=== PATIENT | female | born 1990 | race African-American/Black ===

== ENCOUNTER 2024-03-10 17:05 | Emergency (ER) | payer OTHER ==
[~2024-03-10] VITALS: Ht 167.6 cm; Wt 75.5 kg
[2024-03-10 18:52] VITALS: BP 147/100
== END 2024-03-10 18:52 | disposition home or self-care (01) ==
LOC: ED 17:05
DX: R45.851 Suicidal ideations (principal); F60.3 Borderline personality disorder; Z88.5 Allergy status to narcotic agent
CPT/HCPCS: 99284